=== PATIENT | male | born 1995 | race Hispanic/Latino ===

== ENCOUNTER 2019-01-04 18:21 | Emergency (ER) | payer SELFPAY ==
[2019-01-04] MEDS ORDERED: NACL 0.9% 1000 ML 1,000 ML IV ONE ×3 (20:11→23:41)
[2019-01-04 20:30] LABS: Hematocrit 42.3 % (35.5-45.6); Mean Corpuscular HGB Conc 33 % (32-34); Mean Corpuscular Volume 85 fl (84-94); Platelet Count 243 K/mm3 (140-440); Red Blood Count 4.98 M/mm3 (3.65-5.03); Red Cell Distribution Width 17.2 % (13.2-15.2)
[2019-01-04 21:00] LABS: Alanine Aminotransferase 42 units/L (7-56); BUN/Creatinine Ratio 14; Blood Urea Nitrogen 13 mg/dL (9-20); Calcium 9.4 mg/dL (8.4-10.2); Hemolysis Index 3
--- NOTE | 2019-01-05 | Emergency Department Report ---
ED Alcohol HPI - General Chief Complaint: Alcohol Stated Complaint: AMS/ETOH/DRUG USE Time Seen by Provider: 01/04/19 20:10 Source: EMS Mode of arrival: Stretcher Limitations: No Limitations - History of Present Illness Initial Comments: [id number]-year-old male with no significant past medical history presents to the hospital stating that he drank too much. Patient states he was doing work all day and drinks very little. Today he went out to a muscular restaurant and had beers and margaritas about 1:00p. He denies any physical pain. He also st ates he took "spice" which is synthetic marijuana. - Related Data Allergies Allergy/AdvReac Type Severity Reaction Status Date / Time No Known Allergies Allergy Unverified 01/04/19 19:26 ED Review of Systems ROS: Stated complaint: AMS/ETOH/DRUG USE Other details as noted in HPI Comment: All other systems reviewed and negative ED Past Medical Hx - Past Medical History Previous Medical History?: No - Surgical History Past Surgical History?: No - Social History Smoking Status: Never Smoker Substance Use Type: Alcohol ED Physical Exam - General Limitations: No Limitations - Other Other exam information: General: No limitations, patient is alert in no acute distress Head exam: Atraumatic, normocephalic Eyes exam: Normal appearance, pupils equal reactive to light, extraocular movements intact ENT: Moist mucous membrane Neck exam: Normal inspection, full range of motion, no meningismus nontender Respiratory exam: Clear to auscultation bilateral, no wheezes, rales, crackles Cardiovascular: Normal rate and rhythm, normal heart sounds Abdomen: Soft, nondistended, and nontender, with normal bowel sounds, no rebound, or guarding Extremity: Full range of motion normal inspection no deformity Back: Normal Inspection, full range of motion, no tenderness Neurologic: Alert, oriented x3, cranial nerves intact, no motor or sensory deficit Psychiatric: normal affect, normal mood Skin: First-degree sunburn ED Course Vital Signs 01/04/19 01/04/19 01/04/19 19:20 19:21 19:23 Temperature 98.0 F Pulse Rate 94 H 90 Respiratory 14 20 Rate Blood Pressure 95/45 94/41 O2 Sat by Pulse 97 96 97 Oximetry 01/04/19 01/04/19 01/04/19 19:25 19:27 19:29 Temperature Pulse Rate 91 H 89 86 Respiratory 19 18 Rate Blood Pressure 91/47 91/47 91/47 O2 Sat by Pulse 97 95 95 Oximetry 01/04/19 01/04/19 01/04/19 19:30 19:31 19:33 Temperature Pulse Rate 87 91 H 99 H Respiratory 20 16 21 Rate Blood Pressure 90/41 90/41 90/41 O2 Sat by Pulse 95 95 94 Oximetry 01/04/19 01/04/19 01/04/19 19:35 19:37 19:39 Temperature Pulse Rate 99 H 94 H 90 Respiratory 19 22 18 Rate Blood Pressure 90/41 90/41 90/41 O2 Sat by Pulse 94 95 94 Oximetry 01/04/19 01/04/19 01/04/19 19:41 19:43 19:45 Temperature Pulse Rate 98 H 92 H 90 Respiratory 19 14 13 Rate Blood Pressure 90/41 90/41 99/48 O2 Sat by Pulse 93 95 95 Oximetry 01/04/19 01/04/19 01/04/19 19:47 19:49 19:51 Temperature Pulse Rate 83 81 82 Respiratory 18 20 18 Rate Blood Pressure 99/48 99/48 99/48 O2 Sat by Pulse 95 97 96 Oximetry 01/04/19 01/04/19 01/04/19 19:53 19:55 19:57 Temperature Pulse Rate 79 77 80 Respiratory 18 16 17 Rate Blood Pressure 99/48 99/48 99/48 O2 Sat by Pulse 97 97 97 Oximetry 01/04/19 01/04/19 01/04/19 20:00 20:30 21:00 Temperature Pulse Rate 94 H 78 80 Respiratory 13 20 17 Rate Blood Pressure 103/33 97/51 100/53 O2 Sat by Pulse 97 97 98 Oximetry 01/04/19 01/04/19 21:30 22:00 Temperature Pulse Rate 77 74 Respiratory 9 L 16 Rate Blood Pressure 101/55 97/51 O2 Sat by Pulse 96 98 Oximetry - Reevaluation(s) Reevaluation #1: 01/05/19 00:00 Still awaiting urine output after 2 L of normal saline. Third liter ordered ED Medical Decision Making - Lab Data Result diagrams: 01/04/19 20:03 01/04/19 20:19 Lab Results 01/04/19 01/04/19 01/04/19 Range/Units 20:03 20:03 20:19 WBC 11.1 H (4.5-11.0) K/mm3 RBC 4.98 (3.65-5.03) M/mm3 Hgb 14.0 (11.8-15.2) gm/dl Hct 42.3 (35.5-45.6) % MCV 85 (84-94) fl MCH 28 (28-32) pg MCHC 33 (32-34) % RDW 17.2 H (13.2-15.2) % Plt Count 243 (140-440) K/mm3 Sodium 140 (137-145) mmol/L Potassium 4.0 (3.6-5.0) mmol/L Chloride 106.3 (98-107) mmol/L Carbon Dioxide 25 (22-30) mmol/L Anion Gap 13 mmol/L BUN 13 (9-20) mg/dL Creatinine 0.9 (0.8-1.5) mg/dL Estimated GFR > 60 ml/min BUN/Creatinine Ratio 14 % Glucose 91 (75-100) mg/dL Calcium 9.4 (8.4-10.2) mg/dL Total Bilirubin 0.20 (0.1-1.2) mg/dL AST 29 (5-40) units/L ALT 42 (7-56) units/L Alkaline Phosphatase 56 (35-129) units/L Total Protein 6.6 (6.3-8.2) g/dL Albumin 4.0 (3.9-5) g/dL Albumin/Globulin Ratio 1.5 % Urine Color (Yellow) Urine Turbidity (Clear) Urine pH (5.0-7.0) Ur Specific Henderson (1.003-1.030) Urine Protein (Negative) mg/dL Urine Glucose (UA) (Negative) mg/dL Urine Ketones (Negative) mg/dL Urine Blood (Negative) Urine Nitrite (Negative) Urine Bilirubin (Negative) Urine Urobilinogen (<2.0) mg/dL Ur Leukocyte Esterase (Negative) Urine WBC (Auto) (0.0-6.0) /HPF Urine RBC (Auto) (0.0-6.0) /HPF Urine Mucus /HPF Urine Opiates Screen Urine Methadone Screen Ur Barbiturates Screen Ur Phencyclidine Scrn Ur Amphetamines Screen U Benzodiazepines Scrn Urine Cocaine Screen U Marijuana (THC) Screen Drugs of Abuse Note Plasma/Serum Alcohol < 0.01 (0-0.07) % 01/05/19 01/05/19 Range/Units 00:50 00:50 WBC (4.5-11.0) K/mm3 RBC (3.65-5.03) M/mm3 Hgb (11.8-15.2) gm/dl Hct (35.5-45.6) % MCV (84-94) fl MCH (28-32) pg MCHC (32-34) % RDW (13.2-15.2) % Plt Count (140-440) K/mm3 Sodium (137-145) mmol/L Potassium (3.6-5.0) mmol/L Chloride (98-107) mmol/L Carbon Dioxide (22-30) mmol/L Anion Gap mmol/L BUN (9-20) mg/dL Creatinine (0.8-1.5) mg/dL Estimated GFR ml/min BUN/Creatinine Ratio % Glucose (75-100) mg/dL Calcium (8.4-10.2) mg/dL Total Bilirubin (0.1-1.2) mg/dL AST (5-40) units/L ALT (7-56) units/L Alkaline Phosphatase (35-129) units/L Total Protein (6.3-8.2) g/dL Albumin (3.9-5) g/dL Albumin/Globulin Ratio % Urine Color Yellow (Yellow) Urine Turbidity Clear (Clear) Urine pH 6.0 (5.0-7.0) Ur Specific Henderson 1.020 (1.003-1.030) Urine Protein <15 mg/dl (Negative) mg/dL Urine Glucose (UA) Neg (Negative) mg/dL Urine Ketones Neg (Negative) mg/dL Urine Blood Neg (Negative) Urine Nitrite Neg (Negative) Urine Bilirubin Neg (Negative) Urine Urobilinogen < 2.0 (<2.0) mg/dL Ur Leukocyte Esterase Neg (Negative) Urine WBC (Auto) 3.0 (0.0-6.0) /HPF Urine RBC (Auto) 1.0 (0.0-6.0) /HPF Urine Mucus 3+ /HPF Urine Opiates Screen Presumptive negative Urine Methadone Screen Presumptive negative Ur Barbiturates Screen Presumptive negative Ur Phencyclidine Scrn Presumptive negative Ur Amphetamines Screen Presumptive negative U Benzodiazepines Scrn Presumptive negative Urine Cocaine Screen Presumptive negative U Marijuana (THC) Screen Presumptive negative Drugs of Abuse Note Disclamer Plasma/Serum Alcohol (0-0.07) % - Medical Decision Making ED workup unremarkable. Patient hydrated with IV fluids Patient admits to alcohol intake and synthetic marijuana Will be discharged home since he is feeling - Differential Diagnosis drug intoxication, alcohol intoxication, dehydration Critical Care Time: No Critical care attestation.: If time is entered above; I have spent that time in minutes in the direct care of this critically ill patient, excluding procedure time. ED Disposition Clinical Impression: Drug use, Dehydration, Alcohol use Disposition: DC-01 TO HOME OR SELFCARE Is pt being admited?: No Does the pt Need Aspirin: No Condition: Stable Instructions: Polysubstance Abuse (ED) Additional Instructions: Stop using synthetic marijuana. Hydrate appropriately when exerting yourself in hot weather. Follow-up with your doctor or the doctor provided. Referrals: UBALDO BARRETT MD [Primary Care Provider] - 3-5 Days Time of Disposition: 01:29
[2019-01-05 01:19] LABS: Bilirubin,Urine NEG (Negative); Blood,Urine NEG (Negative); Color,Urine Yellow (Yellow); Mucus,Urine 3+ /HPF; Protein,Urine <15 mg/dL mg/dL (Negative); Urobilinogen,Urine < 2.0 mg/dL (<2.0)
[2019-01-05 01:21] LABS: Amphetamine Screen,Urine PRESUMPTIVE NEGATIVE; Benzodiazepines Screen,Urine PRESUMPTIVE NEGATIVE; Cannabinoid Screen,Urine PRESUMPTIVE NEGATIVE; Cocaine Screen,Urine PRESUMPTIVE NEGATIVE; Methadone Screen,Urine PRESUMPTIVE NEGATIVE; Opiate Screen,Urine PRESUMPTIVE NEGATIVE
[2019-01-05 01:36] VITALS: BP 113/59
== END 2019-01-05 01:36 | disposition home or self-care (01) ==
LOC: ED 18:21
DX: E86.0 Dehydration (principal); F10.920 Alcohol use, unspecified with intoxication, uncomplicated; F12.90 Cannabis use, unspecified, uncomplicated
CPT/HCPCS: 36415; 80053; 80307; 81001; 85027; 96360; 96361; 99283; J7030; 80320; G0480